=== PATIENT | female | born 1950 | race Caucasian/White ===

== ENCOUNTER 2022-10-29 02:03 | Inpatient (IN) | payer BC ==
[~2022-10-29] VITALS: Ht 175.3 cm; Wt 70.3 kg
[2022-10-29 02:10] VITALS: BP_SYST 161
--- NOTE | 2022-10-29 02:10 | NUR ---
Triaged and placed patient back to the waiting room. No acute respiratory distress at this time. VSS. Informed patient to notify ED staff for any changes in condition or worsening of symptoms while waiting to be seen by a provider. Patient verbalized understanding.
--- NOTE | 2022-10-29 02:14 | NUR ---
Dr. Man in triage room examining the patient.
--- NOTE | 2022-10-29 02:23 | NUR ---
Patient placed in ER Bed 6 for evaluation. Bed in lowest position with siderails up. Report given to [facility] WOODS for continuity of care. Instructed to notify ED staff for any changes in condition or worsening of symptoms. Patient verbalized understanding.
[2022-10-29] MEDS ORDERED: NACL 0.9% 1,000 ML IV ONE (02:30)
[2022-10-29] MEDS ORDERED: MORPHINE 4 MG INJ. 4 MG/ML VIAL IVP ONE ×2 (02:30→04:30)
[2022-10-29] MEDS ORDERED: ONDANSETRON HCL 4 MG/2 ML VIAL IVP ONE ×2 (02:30)
--- NOTE | 2022-10-29 02:37 | NUR ---
Patient is back from CT.
[2022-10-29 02:50] LABS: BASOPHILS % (AUTO) 0.2 % (0.0-2.0); HEMATOCRIT 41.2 % (36-48); HEMOGLOBIN 14.1 g/dL (12.0-16.0); LYMPHOCYTES # (AUTO) 0.5 K/uL (1.0-5.5); MEAN CORPUSCULAR HEMOGLOBIN 27 pg (27-31); MEAN CORPUSCULAR HGB CONC 34 % (32-36); MEAN CORPUSCULAR VOLUME 80 fL (79.0-98.0); MONOCYTES # (AUTO) 0.8 K/uL (0.0-1.0); MONOCYTES % (AUTO) 6.9 % (1.7-9.3); NEUTROPHILS # (AUTO) 10.5 K/uL (1.8-7.7); NEUTROPHILS % (AUTO) 88.9 % (40.0-70.0); PLATELET COUNT (AUTO) 150 K/uL (130-430); RED BLOOD CELL COUNT(AUTO) 5.19 MIL/uL (4.2-6.2); RED CELL DISTRIBUTION WIDTH 14.6 % (9.0-15.0); WHITE BLOOD COUNT (AUTO) 11.9 K/uL (4.8-10.8)
[2022-10-29 03:14] LABS: ANION GAP 12 (5-15); CALCIUM 9.2 mg/dL (8.4-11.0); CHLORIDE 98 mmol/L (98-107); CREATININE 0.73 mg/dL (0.55-1.30); GLUCOSE 179 mg/dL (70-99); UREA NITROGEN, BLOOD 11 mg/dL (8-21)
[2022-10-29 03:17] LABS: ALANINE AMINOTRANSFERASE 13 U/L (12-78); ALBUMIN 4.3 g/dL (3.4-4.8); ASPARTATE AMINOTRANSFERASE 12 U/L (10-37); LIPASE 88 U/L (73-393); TOTAL BILIRUBIN 3.4 mg/dL (0.0-1.0)
[2022-10-29] MEDS ORDERED: PIPERACILLIN/TAZO 3.375 GM in NS 50 ML IV ONE (04:30)
--- NOTE | 2022-10-29 04:47 | NUR ---
urine sample collected and sent to lab.
[2022-10-29] MEDS ORDERED: PIPERACILLIN/TAZOBACTAM 3.375 GM/VIAL (ZOSYN) IV ONE (04:52)
[2022-10-29 05:05] LABS: BILIRUBIN,URINE NEGATIVE (NEGATIVE); BLOOD, URINE 1+ (NEGATIVE); CLARITY/URINE SL CLOUDY (CLEAR); COLOR,URINE YELLOW (YELLOW); GLUCOSE,URINE NEGATIVE (NEGATIVE); KETONES,URINE NEGATIVE (NEGATIVE); LEUKOCYTE ESTERASE ,URINE TRACE (NEGATIVE); NITRITE, URINE NEGATIVE (NEGATIVE); PROTEIN URINE NEGATIVE (NEGATIVE); UROBILINOGEN,URINE 0.2 (0.2-1.0)
[2022-10-29 06:33] LABS: BACTERIA,URINE RARE /HPF (None Seen)
--- NOTE | 2022-10-29 06:52 | NUR ---
Admit bed requested Patient will be admitted to care of . Admitted to MEDSURG unit. Diagnosis ACUTE CHOLECYSTITIS Inpatient (Yes or No) YES Observation (Yes or No) NO Orientation concerns or request close to nursing station (Yes or No) NO Covid Status N/A On vent or bipap NO Isolation requirements NO Needs a sitter NO From Home (Yes or if No enter name of facility) YES Requires Dialysis (Yes or No) NO Med Rec Completed (Yes of No) YES
[2022-10-29] MEDS ORDERED: D5/0.45 NS 1,000 ML IV ONE (07:00)
--- NOTE | 2022-10-29 08:03 | NUR ---
Report received from CHUCK Buchanan; Pt is [id number] Zosyn running with no issues. IV line is patent.
[2022-10-29] MEDS ORDERED: LABETALOL HCL 20 MG/4 ML CARTRIDGE IVP PRN (08:45)
[2022-10-29 08:54] VITALS: BP_SYST 158
--- NOTE | 2022-10-29 09:30 | NUR ---
Patient will be admitted to care of RN. Admitted to Med Surg unit. Belongings list completed. Complete and up to date summary report printed. SBAR report to be given at bedside with opportunity for questions.
[2022-10-29] MEDS ORDERED: KCL 20 mEq in 100 mL (PREMIX) 100 ML IV ONE (11:15)
[2022-10-29 11:35] VITALS: BP_SYST 149
--- NOTE | 2022-10-29 14:16 | NUR ---
CONSULTATION PAGED REASON FOR CONSULTATION:GB WAS CONSULT CALLED?Y PERSON WHO WAS NOTIFIED:LEFT VOICEMAIL CONSULTING PHYSICIAN:RACIEL WHITNEY WEB UI DESIGNER SPECIALTY:SURGEON WEB UI DESIGNER PHONE NUMBER:[phone] REQUESTING PHYSICIAN:ORLANDO SERRANO
[2022-10-29] MEDS: ONDANSETRON HCL 4 MG/2 ML VIAL IVP PRN (15:06)
[2022-10-29] MEDS: HYDROmorphone 1 MG/ML INJ. CARTRIDGE IVP PRN ×2 (15:07→23:24)
[2022-10-29] MEDS: PIPERACILLIN/TAZO 3.375 GM in NS 50 ML IV SCH ×2 (15:18→23:23)
[2022-10-29 17:41] VITALS: BP_SYST 147
[2022-10-29 20:00] VITALS: BP_SYST 118
[2022-10-30] VITALS: BP_SYST 111
[2022-10-30 05:50] LABS: BASOPHILS # (AUTO) 0.1 K/uL (0.0-0.2); EOSINOPHILS % (AUTO) 0.2 % (0.0-4.0); HEMATOCRIT 34.4 % (36-48); HEMOGLOBIN 11.7 g/dL (12.0-16.0); LYMPHOCYTES # (AUTO) 0.6 K/uL (1.0-5.5); LYMPHOCYTES % (AUTO) 9.3 % (20.5-51.5); MEAN CORPUSCULAR HEMOGLOBIN 27 pg (27-31); MEAN CORPUSCULAR HGB CONC 34 % (32-36); MEAN CORPUSCULAR VOLUME 81 fL (79.0-98.0); MONOCYTES # (AUTO) 0.5 K/uL (0.0-1.0); NEUTROPHILS # (AUTO) 5.5 K/uL (1.8-7.7); NEUTROPHILS % (AUTO) 82.5 % (40.0-70.0); PLATELET COUNT (AUTO) 104 K/uL (130-430); RED BLOOD CELL COUNT(AUTO) 4.25 MIL/uL (4.2-6.2); RED CELL DISTRIBUTION WIDTH 14.2 % (9.0-15.0); WHITE BLOOD COUNT (AUTO) 6.6 K/uL (4.8-10.8)
[2022-10-30 06:07] LABS: ANION GAP 7 (5-15); CALCIUM 8.2 mg/dL (8.4-11.0); CHLORIDE 101 mmol/L (98-107); CREATININE 0.77 mg/dL (0.55-1.30); GLUCOSE 113 mg/dL (70-99); UREA NITROGEN, BLOOD 12 mg/dL (8-21)
[2022-10-30] MEDS: PIPERACILLIN/TAZO 3.375 GM in NS 50 ML IV SCH ×3 (06:39→22:35)
--- NOTE | 2022-10-30 07:21 | NUR ---
PATIENT IS LYING IN BED AXO 4 WITH S/S OF PAIN IN HER STOMACH. CHANGED PATIENT'S IV TO 22 RIGHT HAND DUE TO 20 AC NOT WORKING ANYMORE. ANTIBIOTICS WERE GIVEN ALONG WITH DILUTED. HAD PATIENT NPO SINCE MIDNIGHT. SAFETY CHECKS DONE AND CALL LIGHT WITH IN REACH.
[2022-10-30] MEDS ORDERED: MAGNESIUM SULFATE 1 GM/2 ML VIAL IVP ONE (08:00)
[2022-10-30 08:27] VITALS: BP_SYST 116
[2022-10-30] MEDS ORDERED: KCL 20 mEq in 100 mL (PREMIX) 200 ML IV ONE (08:30)
[2022-10-30] MEDS ORDERED: MAGNESIUM SULFATE 50 ML IV ONE (08:30)
[2022-10-30] MEDS ORDERED: LABETALOL 100 MG/ 20ML VIAL IVP PRN (14:15)
[2022-10-30] MEDS ORDERED: METOCLOPRAMIDE HCL 10 MG/2 ML VIAL IVP PRN (14:15)
[2022-10-30] MEDS ORDERED: HYDROmorphone 1 MG/ML INJ. CARTRIDGE IVP PRN ×2 (14:15)
[2022-10-30] MEDS ORDERED: hydrALAZINE HCL 20 MG/ML VIAL IVP PRN (14:15)
[2022-10-30] MEDS ORDERED: MEPERIDINE HCL/PF 25 MG/ML DISP.SYRIN IVP PRN (14:15)
[2022-10-30] MEDS ORDERED: ACETAMINOPHEN I.V. 1000 MG 100 ML IV ONE (14:19)
[2022-10-30 15:04] VITALS: BP_SYST 116
[2022-10-30] MEDS ORDERED: LR 1,000 ML IV.SOLN IV ONE (15:30)
[2022-10-30] MEDS ORDERED: SUGAMMADEX SODIUM 200 MG/2 ML VIAL IV ONE (15:30)
[2022-10-30] MEDS ORDERED: DEXAMETHASONE SOD PHOSPHATE 4 MG/ML VIAL ONE (15:30)
[2022-10-30] MEDS ORDERED: PROPOFOL 200MG/ 20ML VIAL (DIPRIVAN) IV ONE (15:30)
[2022-10-30] MEDS ORDERED: NS IRRIG SOLN 1000 ML IR ONE (15:30)
[2022-10-30] MEDS ORDERED: fentaNYL CITRATE/PF 100 MCG/2 ML AMP ONE (15:30)
[2022-10-30] MEDS ORDERED: BUPIVACAINE /PF 0.25% 30 ML VIAL INJ ONE (15:30)
[2022-10-30] MEDS ORDERED: KETOROLAC TROMETHAMINE 30 MG VIAL ONE (15:30)
[2022-10-30] MEDS ORDERED: MIDAZOLAM HCL 5 MG/ML VIAL (VERSED) IV ONE (15:30)
[2022-10-30] MEDS ORDERED: DESFLURANE 15 MIN GAS INH ONE (15:30)
[2022-10-30] MEDS ORDERED: ROCURONIUM BROMIDE 10 MG/ML (ZEMURON) ONE (15:30)
[2022-10-30] MEDS ORDERED: WATER FOR IRRIGATION,STERILE 1,000 ML IRRIG.SOLN IR ONE (15:30)
[2022-10-30] MEDS ORDERED: ONDANSETRON HCL 4 MG/2 ML VIAL ONE (15:30)
[2022-10-30] MEDS ORDERED: LABETALOL HCL 20 MG/4 ML CARTRIDGE IVP ONE (15:51)
[2022-10-30 16:57] VITALS: BP_SYST 158
[2022-10-30] MEDS: LR 1,000 ML IV SCH (17:02)
[2022-10-30] MEDS: HYDROmorphone 1 MG/ML INJ. CARTRIDGE IVP PRN (17:20)
[2022-10-30 18:24] VITALS: BP_SYST 129
[2022-10-31] VITALS: BP_SYST 145
[2022-10-31] MEDS: ONDANSETRON HCL 4 MG/2 ML VIAL IVP PRN (02:31)
[2022-10-31] MEDS: HYDROmorphone 1 MG/ML INJ. CARTRIDGE IVP PRN ×2 (02:37→09:00)
[2022-10-31] MEDS: LR 1,000 ML IV SCH ×2 (02:48→10:15)
[2022-10-31 05:51] LABS: BASOPHILS % (AUTO) 0.1 % (0.0-2.0); HEMATOCRIT 32.9 % (36-48); HEMOGLOBIN 11.1 g/dL (12.0-16.0); LYMPHOCYTES # (AUTO) 0.3 K/uL (1.0-5.5); LYMPHOCYTES % (AUTO) 4.8 % (20.5-51.5); MEAN CORPUSCULAR HEMOGLOBIN 27 pg (27-31); MEAN CORPUSCULAR HGB CONC 34 % (32-36); MEAN CORPUSCULAR VOLUME 81 fL (79.0-98.0); MONOCYTES # (AUTO) 0.3 K/uL (0.0-1.0); NEUTROPHILS # (AUTO) 4.7 K/uL (1.8-7.7); NEUTROPHILS % (AUTO) 89.1 % (40.0-70.0); PLATELET COUNT (AUTO) 104 K/uL (130-430); RED BLOOD CELL COUNT(AUTO) 4.08 MIL/uL (4.2-6.2); RED CELL DISTRIBUTION WIDTH 14.6 % (9.0-15.0); WHITE BLOOD COUNT (AUTO) 5.3 K/uL (4.8-10.8)
[2022-10-31] MEDS: PIPERACILLIN/TAZO 3.375 GM in NS 50 ML IV SCH (05:54)
[2022-10-31 06:02] LABS: ANION GAP 9 (5-15); CALCIUM 8.2 mg/dL (8.4-11.0); CHLORIDE 103 mmol/L (98-107); CREATININE 0.68 mg/dL (0.55-1.30); GLUCOSE 131 mg/dL (70-99); UREA NITROGEN, BLOOD 12 mg/dL (8-21)
[2022-10-31] MEDS ORDERED: ATEN-167 PO (06:27)
[2022-10-31] MEDS ORDERED: TRIA1TAB96 PO (06:27)
[2022-10-31] MEDS ORDERED: LIP10 PO (06:27)
[2022-10-31] MEDS ORDERED: ASPI-859 PO (06:27)
[2022-10-31 08:53] VITALS: BP_SYST 154
[2022-10-31] MEDS ORDERED: ATENOLOL 50 MG TABLET (TENORMIN) PO SCH (09:00)
[2022-10-31] MEDS ORDERED: KCL 20 mEq in 100 mL (PREMIX) 100 ML IV ONE (10:00)
[2022-10-31 11:17] VITALS: BP_SYST 144
[2022-10-31] MEDS ORDERED: IBUP-1969 PO (13:23)
[2022-10-31 13:34] LABS: ALBUMIN 2.9 g/dL (3.4-4.8); BILIRUBIN,DIRECT 0.4 mg/dL (0.0-0.3)
[2022-10-31 13:52] VITALS: BP_SYST 144
--- NOTE | 2022-10-31 14:30 | NUR ---
D/C Patient to home, picked up by the via personal vehicle. Patient is alert and oriented, verbally responsive in no acute distress. Patient given medication reconciliation form and D/C instructions. Exit Care provided. Patient verbalized understanding. MD discussed with patient the results, treatment provided, and restrictions. Ambulatory with steady gait for discharge to home. Patient in stable condition, ID band removed. IV catheter removed, intact and dressing applied, no active bleeding. Lap sites dressing clean, dry, and intact. Patient educated on pain management. All belongings sent with patient. VSS, no c/o pain or discomfort at this time.
== END 2022-10-31 14:30 | disposition home or self-care (01) | DRG 419 ==
LOC: SED 02:03 → SMU 06:46
PROVIDERS: ADMIT Specialist; ATTEND Specialist
PROC: 0FT44ZZ Resection of Gallbladder, Percutaneous Endoscopic Approach (ICD-10-PCS; principal; 2022-10-30 13:45)
DX: K80.00 Calculus of gallbladder with acute cholecystitis without obstruction (principal); I10 Essential (primary) hypertension; E78.5 Hyperlipidemia, unspecified; K82.8 Other specified diseases of gallbladder; E78.00 Pure hypercholesterolemia, unspecified; E87.6 Hypokalemia; K57.90 Diverticulosis of intestine, part unspecified, without perforation or abscess without bleeding; K82.A1 Gangrene of gallbladder in cholecystitis; D72.829 Elevated white blood cell count, unspecified
CPT/HCPCS: 36415; 76376; 78226; 80048; 80053; 80076; 81000; 83690; 83735; 84132; 85025; 87040; 87081; 88304; 93005; 93306; 96361; 96365; 96375; 96376; 99285; A9537; C1727; J0131; J1100; J1170; J1885; J2250; J2270; J2405; J2543; J2704; J3010; J3475; J3480; J3490; J7120

== ENCOUNTER 2024-03-04 14:32 | Emergency (ER) | payer BC ==
[~2024-03-04] VITALS: Ht 177.8 cm; Wt 65.8 kg
[~2024-03-04 14:32] MED LIST: ASPI-859 PO; ATEN-167 PO; ATOR-449 PO; IBUP-1969 PO; TRIA1TAB96 PO
[2024-03-04 14:36] VITALS: BP_SYST 122; PULSE 80; RESP 16; TEMP 100.2; O2SAT 98
[2024-03-04 15:13] LABS: BASOPHILS % (AUTO) 0.3 % (0.0-2.0); EOSINOPHILS % (AUTO) 0.1 % (0.0-4.0); HEMATOCRIT 35.1 % (36-48); HEMOGLOBIN 11.8 g/dL (12.0-16.0); LYMPHOCYTES # (AUTO) 0.4 K/uL (1.0-5.5); LYMPHOCYTES % (AUTO) 5.6 % (20.5-51.5); MEAN CORPUSCULAR HEMOGLOBIN 27 pg (27-31); MEAN CORPUSCULAR HGB CONC 34 % (32-36); MEAN CORPUSCULAR VOLUME 80 fL (79.0-98.0); MONOCYTES # (AUTO) 0.2 K/uL (0.0-1.0); MONOCYTES % (AUTO) 3.3 % (1.7-9.3); NEUTROPHILS % (AUTO) 90.7 % (40.0-70.0); PLATELET COUNT (AUTO) 192 K/uL (130-430); RED CELL DISTRIBUTION WIDTH 15.5 % (9.0-15.0); WHITE BLOOD COUNT (AUTO) 6.6 K/uL (4.8-10.8)
[2024-03-04 15:25] LABS: ALANINE AMINOTRANSFERASE 15 U/L (12-78); ALBUMIN 4.3 g/dL (3.4-4.8); ANION GAP 10 (5-15); ASPARTATE AMINOTRANSFERASE 22 U/L (10-37); CALCIUM 9.6 mg/dL (8.4-11.0); CARBON DIOXIDE 27 mmol/L (23-29); CHLORIDE 105 mmol/L (98-107); GLUCOSE 100 mg/dL (74-106); INR 1.2 (0.8-1.2); POTASSIUM 4.4 mmol/L (3.5-5.1); PROTHROMBIN TIME 13.1 SECS (9.5-12.5); SODIUM SERUM 142 mmol/L (136-145); TOTAL BILIRUBIN 0.9 mg/dL (0.0-1.0); TOTAL PROTEIN, SERUM 7.3 g/dL (6.4-8.3); UREA NITROGEN, BLOOD 12 mg/dL (8-21)
[2024-03-04 15:35] LABS: AMYLASE 71 U/L (0-100); BILIRUBIN,DIRECT 0.3 mg/dL (0.0-0.3); LIPASE 89 U/L (16-77)
[2024-03-04 16:55] LABS: BILIRUBIN,URINE NEGATIVE (NEGATIVE); BLOOD, URINE NEGATIVE (NEGATIVE); CLARITY/URINE CLEAR (CLEAR); COLOR,URINE YELLOW (YELLOW); GLUCOSE,URINE NEGATIVE (NEGATIVE); KETONES,URINE NEGATIVE (NEGATIVE); LEUKOCYTE ESTERASE ,URINE NEGATIVE (NEGATIVE); NITRITE, URINE NEGATIVE (NEGATIVE); PROTEIN URINE NEGATIVE (NEGATIVE)
[2024-03-04] MEDS ORDERED: AMOX-423 PO (17:51)
[2024-03-04] MEDS ORDERED: IBUP-1969 PO ×2 (17:51→18:02)
[2024-03-04] MEDS ORDERED: AMOXICILLIN/POTASSIUM CLAV 875 MG TABLET PO ONE (18:00)
[2024-03-04] MEDS ORDERED: LEVO-62 PO (18:02)
[2024-03-04] MEDS ORDERED: FLAPM500 IV (18:03)
[2024-03-04] MEDS: IBUPROFEN 600 MG TABLET PO ONE (18:05)
[2024-03-04 18:06] VITALS: BP_SYST 122; PULSE 80; RESP 16; TEMP 100.2; O2SAT 98
== END 2024-03-04 18:06 | disposition home or self-care (01) ==
LOC: SED 14:32
DX: K57.92 Diverticulitis of intestine, part unspecified, without perforation or abscess without bleeding (principal)
CPT/HCPCS: 36415; 80048; 80076; 81001; 81003; 82150; 83605; 83690; 84484; 85025; 85610; 85730; 99284